=== PATIENT | female | born 1995 | race Caucasian/White ===

== ENCOUNTER 2018-10-25 12:13 | Observation (INO) | payer OTHER ==
[~2018-10-25] VITALS: Ht 177.8 cm; Wt 101.7 kg
[2018-10-25] MEDS ORDERED: LEVOTHYROXINE100 MCG PO (12:26)
--- OUTSIDE RECORDS SUMMARY | 2018-10-25 14:18 | XMS ---
PreManage Notification: TAO ROMAN Security Head Charger Events No recent Security Events currently on file CRITERIA MET - [facility] - 2 Visits in 30 Days CARE PROVIDERS PHI HERNANDEZ Internal Medicine Current PHONE: Unknown PHI HERNANDEZ Primary Care Current PHONE: [phone] Sheila has no Care Guidelines for this patient. Arthur VISIT COUNT (12 MO.) 3 Paul Eastman [address] [place] [address] TOTAL 4 NOTE: Visits indicate total known visits. ED/UCC VISIT TRACKING (12 MO.) 10/25/2018 12:14 [facility] [place] TYPE: Emergency COMPLAINT: - ABD PAIN 10/08/2018 01:07 [facility] [place] TYPE: Emergency DIAGNOSES: - abdominal pain - Acute cystitis without hematuria - Calculus of bile duct without cholangitis or cholecystitis without obstruction 09/28/2018 18:33 [facility] TYPE: Emergency DIAGNOSES: - Calculus of gallbladder without cholecystitis without obstruction - Epigastric Pain - Abdominal Pain - Calculus of bile duct without cholangitis or cholecystitis without obstruction 12/28/2017 14:59 [facility] TYPE: Emergency DIAGNOSES: - Rectal Pain - Other specified diseases of anus and rectum - Bowel Movement Complaint INPATIENT VISIT TRACKING (12 MO.) 09/02/2018 01:47 [facility] [place] TYPE: Obstetrics DIAGNOSES: - Single liveborn infant, delivered vaginally [email or web address]
--- NOTE | 2018-10-26 09:21 | OR ---
[facility] [address], [place] [address] Signed DATE OF OPERATION: 10/25/2018 SURGEON: Nhi Calderon MD PREOPERATIVE DIAGNOSES: 1. Cholelithiasis, cholecystitis. 2. Epigastric hernia. POSTOPERATIVE DIAGNOSES: 1. Cholelithiasis, cholecystitis. 2. Epigastric hernia. PROCEDURES PERFORMED: 1. Laparoscopic cholecystectomy without intraoperative cholangiogram. 2. Subhepatic drain placement. 3. Primary epigastric herniorrhaphy. ESTIMATED BLOOD LOSS: None. FINDINGS: Tao had chronic cholecystitis with cholelithiasis. The fluid inside her gallbladder was clear mucoid fluid. The gallbladder was distended. There was some mild edema to the gallbladder wall. She had multiple yellow cholesterol stones measuring around 4 mm or so. We had opened the gallbladder neck as it was approaching the cystic duct. There were several tiny 1-2 mm yellow cholesterol stones. We milked that back. No additional stones were noted. We passed our intraoperative cholangiocatheter and we found that extravasated out into the soft tissue. We repositioned it under direct visualization. We never convinced ourselves that it had passed to the posterior wall of the gallbladder or the cystic duct. Nevertheless, the contrast extravasated again, so we never were able to obtain the intraoperative cholangiogram. We dissected down additional short distance and decided to abort that efforts for the intraoperative cholangiogram. We secured that cystic duct stump with a PDS Endoloop and 2 clips were placed to kayla its location. INDICATIONS: Tao is a 22-year-old female, who had her first baby born vaginally back on 09/02/2018. This last month or so she has been having trouble with epigastric abdominal pain. She has been to the emergency room over in [place], [place], twice and here in [place] today. She is known to have gallstones based on ultrasound findings. The Electronically Signed By: NHI CALDERON MD 10/26/1821 PATIENT NAME: TAO ROMAN OPERATIVE REPORT DATE OF : [birth year] REPORT #: [id number] PHYSICIAN: NHI CALDERON MD PCP: DEBBIE HERNANDEZ MD REPORT IS CONFIDENTIAL AND NOT TO BE RELEASED WITHOUT AUTHORIZATION [facility] [address], [place] [address] Signed white count was normal, but the total bilirubin, AST, ALT, and alkaline phosphatase were all elevated. The lipase was normal. Beta-hCG was negative. Ultrasound reconfirmed multiple mobile stones in the gallbladder with a negative Phoenix sign. The extrahepatic bile duct dilated around 8 mm, but tapered nicely down through the common duct into the ampulla of Vater. Gallbladder wall was borderline at 3.3 mm. Consequently, I was asked to admit her as a general surgeon on-call. She was given IV fluids, Rocephin, and Flagyl along with some pain control. I have met with Tao, her , her dad, and her grandfather. We all reviewed the findings in detail. Tao has had time over the last month to review this on the Internet. Also, her grandmother had a laparoscopic cholecystectomy. They have had a chance to talk as well. We had reviewed the location and function of the gallbladder. We reviewed laparoscopic versus open cholecystectomy. We discussed 20% of people have gallstones and 20% of those people present asymptomatic requiring surgery. Of that group, 3% to 7% will have stones down in the main bile duct. Consequently, we like to perform intraoperative cholangiogram to assess for any filling defects in the bile duct. We had reviewed the expected intraop and postop course. They understand there is risk including, but not limited to bleeding, infection, scarring, change in contour of the skin, damage to bowel, damage to main bile duct, incisional hernias, and other unforeseen comorbidities. We had also briefly discussed ERCP if needed to extract stones from the main bile duct. In addition, she told me she had a small epigastric hernia that she noted while she was . I told her I would look for that at the time of the surgery and we could certainly repair it with simple sutures. She had expressed understanding and wished to proceed. PROCEDURE NOTE: Tao was taken into the operating room and placed in a supine position under general endotracheal tube anesthesia. She was already on preoperative antibiotics along with subcutaneous heparin. SCDs were utilized. She was then prepped and draped in the usual sterile fashion. We made our standard supraumbilical transverse incision and carried that down to the abdominal wall. she had a 3-4 mm epigastric hernia containing fat. Therefore, we placed our Jared trocar through this under direct visualization without difficulty. The abdomen was insufflated and we went ahead and placed our two right subcostal and subxiphoid trocars under direct visualization without difficulty. The findings are as above. The gallbladder was grasped and elevated into the right upper quadrant. We did suction out the clear mucoid bile from inside the gallbladder. [place] of [place] was then dissected free with [place] dissector. We placed a couple of clips across the cystic artery and it was divided. We then inserted the intraoperative cholangiocatheter into the neck of the gallbladder as it was approaching the cystic duct. However, the contrast did extravasate. Consequently, we took another look and dissected down a little farther. We rotated our cholangiocatheter and we never could ascertain if we were through the posterior wall of the gallbladder. We reinserted the catheter into the lumen. Once again, the contrast was extravasating Electronically Signed By: NHI CALDERON MD 10/26/18 0921 PATIENT NAME: TAO ROMAN OPERATIVE REPORT DATE OF : [birth year] REPORT #: [id number] PHYSICIAN: NHI CALDERON MD PCP: DEBBIE HERNANDEZ MD REPORT IS CONFIDENTIAL AND NOT TO BE RELEASED WITHOUT AUTHORIZATION [facility] [address], [place] [address] Signed into the soft tissue. We therefore decided to abandon the intraoperative cholangiogram. We saw just a few tiny 1-2 mm yellow cholesterol stones. I milked the duct back with a [place] dissector and no additional stones were noted. PDS Endoloop was used to secure the cystic duct stump along with a couple of clips to kayla its location. The gallbladder was then carefully and slowly taken off the gallbladder bed with the help of the cautery and placed into an EndoCatch bag. The right upper quadrant was irrigated and suctioned out until clear. We placed a #7 flat Kemar drain into the gallbladder fossa near the cystic duct stump and brought it out through the right most lateral 5 mm trocar site. This was held in place with a 2-0 nylon suture. We then used our laparoscopic suturing device to pass 0 Vicryl suture on either side of the fascia of the subxiphoid trocar site. This was tied down to close this fascia primarily. The gas was then allowed to escape and all the trocars removed along with the gallbladder. The gallbladder was opened on the back table by our circulating nurse. Pictures were taken to document the gallbladder and gallstones. We then closed the epigastric hernia with interrupted [id number] and simple #1 Prolene sutures. Local anesthetic was copiously injected into all trocar sites. Each trocar site was irrigated and suctioned out until clear. The skin and dermis of each trocar site were then closed with interrupted 3-0 subcuticular Monocryl sutures. Dry gauze and tape were applied on all incisions. Tao was then awakened from anesthesia, extubated in the OR, and taken to recovery room in stable condition. Nhi Calderon MD ALB/MODL /[id number] cc: MD Debbie Colby MD Copies: NHI CALDERON MD Electronically Signed By: NHI CALDERON MD 10/26/18 0921 PATIENT NAME: TAO ROMAN OPERATIVE REPORT DATE OF : [birth year] REPORT #: [id number] PHYSICIAN: NHI CALDERON MD PCP: DEBBIE HERNANDEZ MD REPORT IS CONFIDENTIAL AND NOT TO BE RELEASED WITHOUT AUTHORIZATION [address] [address] Signed DEBBIE HERNANDEZ MD ~ Electronically Signed By: NHI CALDERON MD 10/26/18920 PATIENT NAME: TAO ROMAN CARISSA OPERATIVE REPORT DATE OF : [birth year] REPORT #: [id number] PHYSICIAN: NHI CALDERON MD PCP: DEBBIE HERNANDEZ MD REPORT IS CONFIDENTIAL AND NOT TO BE RELEASED WITHOUT AUTHORIZATION
--- NOTE | 2018-10-26 09:21 | CONS ---
[facility] [address] [place], [place] [address] Signed DATE OF CONSULTATION: 10/25/2018 CHIEF COMPLAINT: Epigastric abdominal pain. HISTORY OF PRESENT ILLNESS: Tao is a 22-year-old young lady, who had her first baby born on September [birth year], 2020. She had some trouble the last month or so with epigastric abdominal pain. She has been to the emergency room twice over [facility] in [place], [place]. She is known to have gallstones and had already met with her surgeon and was planning on having her gallbladder out in December. She came over to our local [facility] for a family reunion on weekend. Her epigastric abdominal pain has been acting up. She has been unable to eat and due to the severity of the pain, she came to our local emergency room here at [facility] in [place], [place]. In the emergency room, she is a little tender in the epigastric region, but not particularly concerning. Her vital signs were fine. White count was fine. Beta-hCG is negative. Total bilirubin is up at 4.2 with an AST elevated at 255, ALT 445, alkaline phosphatase is 143. Lipase normal at 4. Repeat ultrasound showed that the gallbladder wall is around 3.3 mm, which is borderline thick. There was multiple mobile gallstones. There seems to be a negative Phoenix sign. She seems to have some mild dilation of the extrahepatic bile duct maybe 8 mm, but they taper down to normal as it head towards the ampulla of Vater. Given all this in combination, then I was asked to admit her as a general surgeon on-call. In the meantime, she has received IV fluids, Rocephin, and Flagyl and pain control. She seems to be doing fine. Her , dad, and her grandfather are all here with her. PAST MEDICAL HISTORY: Cholelithiasis, obesity, and hypothyroidism. PAST SURGICAL HISTORY: Tonsils and teratoma. SOCIAL HISTORY: She does not smoke. She has an occasional drink. She is to her at [phone]. She just had her first baby girl September 02, 2018, born vaginally. Dr. Debbie Perez is her primary care provider. 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 FAMILY HISTORY: Mom had breast cancer. Dad had renal cell carcinoma. REVIEW OF SYSTEMS: She had 10 systems reviewed and there were no new findings. Electronically Signed By: NHI CALDERON MD 10/26/18 0921 PATIENT NAME: TAO ROMAN CONSULTATION DATE OF : [birth year] REPORT #: [id number] PHYSICIAN: NHI CALDERON MD PCP: DEBBIE PEREZ MD REPORT IS CONFIDENTIAL AND NOT TO BE RELEASED WITHOUT AUTHORIZATION [facility] [address] [place], [place] [address] Signed ALLERGIES: None. MEDICATIONS: Levothyroxine 100 mcg p.o. daily. PHYSICAL EXAMINATION: VITAL SIGNS: Her blood pressure 118/69, heart rate 81, respiratory rate 16, temperature is 97.7. She is 98% on room air. She is 5 feet 10 inches and 101 kg. GENERAL: Tao is a 22-year-old female, sitting upright in her hospital bed. Her grandfather, father, and her are all in the room. She does not appear acutely ill or toxic. She is not jaundiced. She appears to have some mild exophthalmos thrombosis. LUNGS: Clear to auscultation. HEART: Regular rate and rhythm. ABDOMEN: Obese, but soft. She points to the area at the epigastric region for the pain and she said she has probably an umbilical or supraumbilical epigastric hernia that she noticed while she was . On palpation, it feels like more than likely it is umbilical. LABORATORY DATA: Her white blood count 4.6, hemoglobin 12. Total bilirubin 4.2, AST 255, ALT 445, alkaline phosphatase 143, albumin is 4.0, and lipase 40. Beta-hCG negative. Urinalysis negative. RADIOGRAPHIC STUDIES: The ultrasound of gallbladder showed a multiple mobile gallstones with a negative Phoenix sign. Her gallbladder wall is borderline at 3.3 mm. The gastrohepatic ducts are around 8 mm, but they taper down to normal towards the ampulla of Vater. ASSESSMENT AND PLAN: Tao is a 22-year-old female, who has symptomatic cholecystitis, cholelithiasis. It has certainly been bothering her significantly for the last 3 months. This is her 3rd visit to an emergency room within about 30 days. Tao has been online reading and is quite familiar with the location of function of the gallbladder. Apparently, her grandmother had a laparoscopic cholecystectomy as well. They have had a chance to talk as well. We have also reviewed laparoscopic versus open cholecystectomy. We did review the expected intraop and postop course. There is risk of surgery including, but not limited to bleeding, infection, scarring, change in contour of the skin, damage to bowel, damage to main bile duct, incisional hernias and other unforeseen comorbidities. She and her family have expressed understanding and would like to proceed with surgery. Electronically Signed By: NHI CALDERON MD 10/26/18 0921 PATIENT NAME: TAO ROMAN CONSULTATION DATE OF : [birth year] REPORT #: [id number] PHYSICIAN: NHI CALDERON MD PCP: DEBBIE PEREZ MD REPORT IS CONFIDENTIAL AND NOT TO BE RELEASED WITHOUT AUTHORIZATION [address] [place], [place] [address] Signed Nhi Calderon MD ALB/MODL /[id number] cc: MD Nhi Demarco MD Copies: DEBBIE PEREZ MD, ANDREW L MD ~ Electronically Signed By: NHI CALDERON MD 10/26/18 0921 PATIENT NAME: TAO ROMAN CONSULTATION DATE OF : [birth year] REPORT #: [id number] PHYSICIAN: NHI CALDERON MD PCP: DEBBIE PEREZ MD REPORT IS CONFIDENTIAL AND NOT TO BE RELEASED WITHOUT AUTHORIZATION
[2018-10-26] MEDS ORDERED: NORCO 5-325 TA1 EACH PO (10:48)
[2018-10-26] MEDS ORDERED: ONDANSETRON ODT4 MG PO (10:52)
[2018-10-26] MEDS ORDERED: PROMETHAZINE HC25 M1 PO (10:54)
--- NOTE | 2018-10-28 07:56 | DS ---
[facility] [address] [place], [place] [address] Signed ADMISSION DATE: 10/25/2018 DISCHARGE DATE: 10/26/2018 FINAL DIAGNOSES: 1. Acute cholecystitis and cholelithiasis. 2. Epigastric hernia. PROCEDURES: 1. Laparoscopic cholecystectomy without intraoperative cholangiogram. 2. Sub-hepatic drain placement. 3. Primary epigastric herniorrhaphy. HISTORY OF PRESENT ILLNESS: Tao is a 22-year-old female, who just had her 1st baby born vaginally on September 02, 2018. She has been doing great. Her family is over at our local [facility] for their family reunion. The last month, she has been having significant recurring epigastric abdominal pain. She is known to have cholelithiasis. She has already met with her surgeon over in [place], [place]. Their plans were to remove her gallbladder electively in December. However, she had a significant attack while here in [place]. She came to our local emergency room at [facility]. Her vital signs were unremarkable. She was not particularly ill or toxic. She was not jaundiced. Her white count was normal. However, the liver function tests including her total bilirubin were elevated. Beta-hCG was negative. Thankfully, the lipase was normal at 40. Followup ultrasound showed multiple mobile stones in the gallbladder. There was a negative Phoenix sign. The gallbladder wall was a little borderline at 3.3 mm. The extrahepatic bile ducts were slightly dilated around 8 mm, but they tapered nicely as they came through the head of the pancreas into the ampulla of Vater. I have been asked to admit her as a general surgeon on-call. She was started on her Rocephin and Flagyl and pain control. HOSPITAL COURSE: I met with Tao and her family including her , dad, and I believe her grandfather. We took her to surgery that same evening then for an uncomplicated laparoscopic cholecystectomy. We could not get our cholangiocatheter down the valves of [place] and we were having extravasation of the fluid. Consequently, we abandoned our intraoperative cholangiogram. This occurs about 10% of the time. We went ahead and placed a drain past the cystic duct. This morning, she has had just 50 mL of thin serosanguineous fluid out. There was no bilious fluid. In addition, she had a small epigastric hernia, which she described to me at the time of her . We found that as we placed our Jared trocar. We simply closed that on the way out with interrupted Prolene suture. Overall, she has done well last night. However, she has Electronically Signed By: NHI CALDERON MD 10/28/18 0756 PATIENT NAME: TAO ROMAN DISCHARGE SUMMARY DATE OF : [birth year] REPORT #: [id number] PHYSICIAN: NHI CALDERON MD PCP: DEBBIE PEREZ MD REPORT IS CONFIDENTIAL AND NOT TO BE RELEASED WITHOUT AUTHORIZATION [facility] [address] [place], [place] [address] Signed been nauseated and needed some Zofran this morning. She looks and feels much better. Her laboratory work is already coming down as well. I explained to Tao and her family if she continues to do well and her nausea resolves, we are happy to send her home later today. Otherwise, we could obviously keep her another night if she is requiring IV fluids and antiemetics. DISCHARGE PLANS AND MEDICATIONS: Tao will be discharged home with a prescription for [place] 5/325 1-2 tablets p.o. q.4-6 hours p.r.n. for severe postoperative pain. We will dispense 30 tablets with no refills. She can purchase Tylenol, ibuprofen or Aleve tega-mbv-nqtccnv for pxub-hw-byftuyoo postoperative pain. We have written for Zofran 4 mg one tablet sublingual q.6 hours p.r.n. for nausea and vomiting. Dispense five pills with two refills. Also, we have written for Phenergan 25 mg one tablet p.o. q.6 hours p.r.n. for nausea and vomiting. Again, we will dispense five tablets with two refills. She can resume her levothyroxine at home. In fact, she is going to follow up with Dr. Debbie Perez here within 30 days or so with respect to the ongoing hypothyroidism. I have given Tao pictures from surgery along with [employer] brochure on the gallbladder. We reviewed that in detail. She is well aware that patients with gallstones have a 3-7% chance of having stones down in the main bile duct. Unfortunately, we were unable to complete her cholangiogram. We are going to leave the drain in place and have her record the drain output each day. I will remove that in 7 to 10 days when she returns to the office. All the dressings are removed and she can shower and bathe as usual. She can use ice as needed for pain. She should not do any heavy pushing, pulling, or lifting over about 20 pounds. That includes her baby. She should not drive while on narcotics. I reviewed all this with Tao and her family. They have expressed understanding and agreed above plan. Nhi Calderon MD ALB/MODL /[id number] cc: MD Debbie Colby MD Electronically Signed By: NHI CALDERON MD 10/28/18 0756 PATIENT NAME: TAO ROMAN DISCHARGE SUMMARY DATE OF : [birth year] REPORT #: [id number] PHYSICIAN: NHI CALDERON MD PCP: DEBBIE PEREZ MD REPORT IS CONFIDENTIAL AND NOT TO BE RELEASED WITHOUT AUTHORIZATION [address] [place], [place] [address] Signed Copies: NHI CALDERON MD, SUSAN MD ~ Electronically Signed By: NHI CALDERON MD 10/28/18 0756 PATIENT NAME: TAO ROMAN DISCHARGE SUMMARY DATE OF : [birth year] REPORT #: [id number] PHYSICIAN: NHI CALDERON MD PCP: DEBBIE PEREZ MD REPORT IS CONFIDENTIAL AND NOT TO BE RELEASED WITHOUT AUTHORIZATION
--- NOTE | 2018-10-30 09:16 | PATH ---
[facility] [address] [place], [place] [address] Signed SPECIMEN(S): A GALLBLADDER SPECIMEN SOURCE: A. GALLBLADDER CLINICAL HISTORY: Cholecystitis. FINAL PATHOLOGIC DIAGNOSIS: Gallbladder, cholecystectomy: - Moderate chronic cholecystitis. - Cholelithiasis. LJA:cml:C2NR MICROSCOPIC EXAMINATION: Histologic sections of all submitted blocks are examined by light microscopy. These findings, together with the gross examination, support the pathologic diagnosis. GROSS DESCRIPTION: The specimen, labeled "JL, gallbladder and contents," is received in formalin and consists of Specimen: Previously opened gallbladder. Dimensions: 10.3 x 3.2 x 2.1 cm. Serosa: Violaceous and smooth. Cystic Duct: Contains fragmented stones. Calculi: Includes a 2.5 x 1.8 x 0.5 cm aggregate of yellow bosselated stones. Mucosa: Diallo-brown and velvety. Wall thickness: 0.3-0.5 cm. Lymph node: No pericystic lymph nodes are grossly identified. Additional: None. Ctrs sections are submitted in cassette (A1). AM (under the direct supervision of a pathologist) The Gross Description was prepared using a voice recognition system. The report was reviewed for accuracy; however, sound-alike word errors, addition and/or deletions may occur. If there is any question about this report, please contact Client Services. PERFORMING LABORATORY: The technical component was performed by [facility], [address] [place] [address] (Casting House Laborer: Ashley Varner MD; CLIA# [id number]). PATIENT NAME: TAO ROMAN PATHOLOGY DATE OF : [birth year] REPORT #: [id number] PHYSICIAN: RENITA ACOSTA PCP: PIH HERNANDEZ MD REPORT IS CONFIDENTIAL AND NOT TO BE RELEASED WITHOUT AUTHORIZATION [facility] [address] [place], [place] [address] Signed Professional interpretation was performed by [facility], [address] [place] [address] (Casting House Laborer: Nestor Alejandre MD; CLIA# [id number]). Diagnostician: Nestor Alejandre MD Pathologist Electronically Signed 10/29/2018 Copies: ~ PATIENT NAME: TAO ROMAN PATHOLOGY DATE OF : [birth year] REPORT #: [id number] PHYSICIAN: RENITA ACOSTA PCP: PHI HERNANDEZ MD REPORT IS CONFIDENTIAL AND NOT TO BE RELEASED WITHOUT AUTHORIZATION
== END 2018-10-26 14:45 | disposition home or self-care (01) ==
LOC: ED 12:13 → MS 12:15
PROVIDERS: ADMIT Colon & Rectal Surgery
PROC: 0WQF0ZZ Repair Abdominal Wall, Open Approach (ICD-10-PCS; 2018-10-25)
PROC: 0FT44ZZ Resection of Gallbladder, Percutaneous Endoscopic Approach (ICD-10-PCS; principal; 2018-10-25 16:32)
DX: K80.00 Calculus of gallbladder with acute cholecystitis without obstruction (principal); K43.6 Other and unspecified ventral hernia with obstruction, without gangrene; E03.9 Hypothyroidism, unspecified; E66.9 Obesity, unspecified; Z79.899 Other long term (current) drug therapy; Z68.32 Body mass index [BMI] 32.0-32.9, adult
CPT/HCPCS: 00790; 36415; 76705; 80053; 81001; 83690; 83735; 84100; 84703; 85025; 96361; 96366; 96372; 96374; 96375; 96376; 99285-25; G0378; J0131; J0330; J0696; J1100; J1170; J1644; J1885; J2250; J2405; J2704; J2765; J3010; J7030; J7120; J7121